=== PATIENT | male | born 1975 | race Caucasian/White ===

== ENCOUNTER → 2020-05-18 08:14 | Outpatient (BNVA) | payer OTHER, SELFPAY | PROVIDERS: PCP Internal Medicine; Visit Provider Family Medicine Adult Medicine | DX: Z76.89 Persons encountering health services in other specified circumstances (principal) ==

== ENCOUNTER 2020-05-30 07:58 | Outpatient (REF) | payer OTHER, SELFPAY ==
--- NOTE | ~2020-05-30 | FL_ITS ---
EXAMINATION: XR FLUOROSCOPY WITH IMAGES CLINICAL INFORMATION: Sacrococcygeal disorders. COMPARISON: None. TECHNIQUE: Fluoroscopy performed by Gina Bhagat NP. Fluoroscopy time: 0.2 minutes DAP: 3.06 Gycm2 Images: 2 FINDINGS: There are needles positioned along the superior border of left sacrum and lateral left S1 and S2 neural foramina with contrast in the adjacent soft tissues. Visualized bones and SI joints are symmetrical. FL/FL guidance in treatment room IMPRESSION: Fluoroscopy was provided to the referring Physician for pain management.
--- NOTE | 2020-05-30 09:14 | FL_ITS ---
EXAMINATION: XR FLUOROSCOPY WITH IMAGES CLINICAL INFORMATION: Radiculopathy lumbar region COMPARISON: None. TECHNIQUE: Fluoroscopy performed by Dr. Gina Bhagat. Fluoroscopy time: 0.6 minutes DAP: 7.41 Gycm2 Images: 2 FINDINGS: Surgical clips are noted in the abdomen indicative of prior surgery repair. A needle and then another needle is noted just beneath the spinous process of what is most likely L5 although I cannot be certain of this based upon the included images. FL/FL guidance in treatment room IMPRESSION: Fluoroscopy and spot films provided during injection procedure.
== END 2020-05-30 07:59 | disposition home or self-care (01) ==
LOC: HO.RADIR 07:58
PROVIDERS: Visit Provider Anesthesiology
DX: M54.16 Radiculopathy, lumbar region (principal)
CPT/HCPCS: 64450; J3300; Q9967

== ENCOUNTER → 2020-07-10 09:21 | Outpatient (BNVA) | payer OTHER, SELFPAY | PROVIDERS: Visit Provider Anesthesiology | DX: Z76.89 Persons encountering health services in other specified circumstances (principal) ==

== ENCOUNTER → 2020-07-20 11:09 | Outpatient (BNVA) | payer OTHER, SELFPAY | PROVIDERS: Visit Provider Family Medicine Adult Medicine | DX: Z76.89 Persons encountering health services in other specified circumstances (principal) ==

== ENCOUNTER → 2020-07-21 08:24 | Outpatient (BNVA) | payer OTHER, SELFPAY | PROVIDERS: Visit Provider Family Medicine Adult Medicine | DX: Z76.89 Persons encountering health services in other specified circumstances (principal) ==

== ENCOUNTER → 2020-09-12 08:05 | Outpatient (BNVA) | payer OTHER, SELFPAY | PROVIDERS: PCP Internal Medicine; Visit Provider Family Medicine Adult Medicine ==

== ENCOUNTER → 2020-11-07 08:03 | Outpatient (BNVA) | payer OTHER, SELFPAY | PROVIDERS: PCP Internal Medicine; Visit Provider Family Medicine Adult Medicine | DX: M54.16 Radiculopathy, lumbar region (principal); M47.816 Spondylosis without myelopathy or radiculopathy, lumbar region ==

== ENCOUNTER → 2021-01-02 08:06 | Outpatient (BNVA) | payer OTHER, SELFPAY | PROVIDERS: PCP Internal Medicine; Visit Provider Family Medicine Adult Medicine | DX: M54.16 Radiculopathy, lumbar region (principal); M47.816 Spondylosis without myelopathy or radiculopathy, lumbar region ==

== ENCOUNTER 2021-02-08 08:21 | Outpatient (REF) | payer OTHER, SELFPAY | END 2021-02-08 08:22 | disposition home or self-care (01) | LOC: HO.LAB 08:21 | PROVIDERS: PCP Internal Medicine; Visit Provider Family Medicine Adult Medicine | DX: M54.16 Radiculopathy, lumbar region (principal); M47.816 Spondylosis without myelopathy or radiculopathy, lumbar region ==

== ENCOUNTER → 2021-03-13 08:02 | Outpatient (BNVA) | payer OTHER, SELFPAY | PROVIDERS: PCP Internal Medicine; Visit Provider Family Medicine Adult Medicine ==

== ENCOUNTER → 2021-04-10 08:03 | Outpatient (BNVA) | payer OTHER, SELFPAY | PROVIDERS: PCP Internal Medicine; Visit Provider Nurse Practitioner Family ==

== ENCOUNTER 2021-04-25 06:52 | Outpatient (REF) | payer OTHER, SELFPAY | END 2021-04-25 06:53 | disposition home or self-care (01) | LOC: HO.RADIR 06:52 | PROVIDERS: Visit Provider Internal Medicine | DX: M53.3 Sacrococcygeal disorders, not elsewhere classified (principal) | CPT/HCPCS: Q9967 ==

== ENCOUNTER → 2021-05-03 08:01 | Outpatient (BNVA) | payer OTHER, SELFPAY | PROVIDERS: Visit Provider Family Medicine Adult Medicine ==

== ENCOUNTER → 2021-05-31 08:01 | Outpatient (BNVA) | payer OTHER, SELFPAY | PROVIDERS: Visit Provider Family Medicine Adult Medicine ==

== ENCOUNTER → 2021-06-21 08:14 | Outpatient (BNVA) | payer OTHER, SELFPAY | PROVIDERS: Visit Provider Family Medicine Adult Medicine ==